=== PATIENT | male | born 1975 | race African-American/Black ===

== ENCOUNTER 2016-08-04 10:43 | Emergency (ER) | payer MEDICAID ==
[2016-08-04 10:51] VITALS: BP 127/71
--- NOTE | 2016-08-04 15:41 | ED ---
Willis, Doctor,Rae, scribed for Ayan Schmidt MD on 08/04/16 at 1139 . GI/ HPI - HPI Summary HPI Summary: 40 year old male arrived to [facility] c/o burning sensation during bowel movements for the past month. He denies any hematochezia, but indicates that the pain is burning and very uncomfortable. He has no PMHx of anal fissures or hemorrhoids. He reports driving very often, and has been using Preparation H (OTC Ointment) regularly. - History of Current Complaint Chief Complaint: EDGeneral Time Seen by Provider: 08/04/16 11:09 Stated Complaint: HEMORRHOIDS Hx Obtained From: Patient Onset/Duration: Started Weeks Ago - one month Timing: Constant Severity: Moderate Current Severity: Moderate Pain Intensity: 6 Associated Signs and Symptoms: Negative: Blood w/Stool, Melena Alleviating Factor(s): Nothing - No change with OTC Ointment (Preparation H) - Allergy/Home Medications Allergies/Adverse Reactions: Allergies Allergy/AdvReac Type Severity Reaction Status Date / Time No Known Allergies Allergy Verified 08/04/16 10:51 PMH/Surg Hx/FS Hx/Imm Hx Endocrine/Hematology History: Denies: Hx Diabetes Cardiovascular History: Denies: Hx Hypertension GI History: Reports: Other GI Disorders - no PMHx of anal fissures, hemorrhoids Infectious Disease History: No Infectious Disease History: Denies: Traveled Outside the [place] in Last 30 Days - Family History Known Family History: Negative: Hypertension, Diabetes - Social History Substance Use Type: Reports: Marijuana Review of Systems Negative: Fever Positive: Other - burning during bowel movements, no hematochezia All Other Systems Reviewed And Are Negative: Yes Physical Exam - Summary Physical Exam Summary: Rectal Exam performed. No abscess, no external hemorrhoids. Slight tenderness. Triage Information Reviewed: Yes Vital Signs On Initial Exam: Initial Vitals Temp Pulse Resp BP Pulse Ox 98.7 F 63 18 127/71 100 08/04/16 10:48 08/04/16 10:48 08/04/16 10:48 08/04/16 10:48 08/04/16 10:48 Vital Signs Reviewed: Yes Appearance: Positive: Well-Appearing, No Pain Distress Skin: Positive: Warm, Skin Color Reflects Adequate Perfusion, Dry Head/Face: Positive: Normal Head/Face Inspection Eyes: Positive: Normal ENT: Positive: Normal ENT inspection Neck: Positive: Supple, Nontender Respiratory/Lung Sounds: Positive: Clear to Auscultation, Breath Sounds Present Cardiovascular: Positive: RRR Abdomen Description: Positive: Nontender, Soft Bowel Sounds: Positive: Present Musculoskeletal: Positive: Normal Neurological: Positive: Normal Psychiatric: Positive: Normal, Affect/Mood Appropriate Diagnostics - Vital Signs Vital Signs Temp Pulse Resp BP Pulse Ox 08/04/16 10:48 98.7 F 63 18 127/71 100 - Laboratory Lab Statement: Any lab studies that have been ordered have been reviewed, and results considered in the medical decision making process. GIGU Course/Dx - Course Course Of Treatment: He rectal exam revealed no hemorrhoids or signs of abscess. He was tender diffusely and I'm wondering if I'm missing a fissure. I will treat him accordingly and have him F/U if not improved. - Diagnoses Provider Diagnoses: Anal fissure Discharge - Discharge Plan Condition: Stable Disposition: HOME Prescriptions: Docusate CAP* [Colace Cap*] 100 mg PO BID #20 cap Patient Education Materials: Anal Fissure (ED) [place] [facility] [place]] Additional Instructions: [place] [facility] [place] The documentation as recorded by the Doctor arellano Tahera accurately reflects the service I personally performed and the decisions made by me, Ayan Schmidt MD.
== END 2016-08-04 12:07 | disposition home or self-care (01) ==
LOC: ED 10:43
DX: K60.2 Anal fissure, unspecified (principal)
CPT/HCPCS: 36415; 86703; 99282

== ENCOUNTER 2016-12-21 20:39 | Emergency (ER) | payer MEDICAID ==
[2016-12-21] MEDS ORDERED: Cyclobenzaprine TAB* 10 MG PO ONE (21:19)
[2016-12-21] MEDS ORDERED: Ibuprofen TAB* 800 MG PO ONE (21:19)
--- NOTE | 2016-12-21 21:59 | RAD ---
HISTORY: Left thigh pain COMPARISONS: None relevant TECHNIQUE: Multiple transverse and longitudinal ultrasound images were obtained of the left lower extremity from the level of the common femoral vein inferiorly through to the infrapopliteal veins using grayscale, color Doppler, and spectral Doppler imaging with and without compression and with augmentation. Comparison images were obtained of the contralateral common femoral vein. FINDINGS: VEINS: The venous system of the left lower extremity is compressible throughout its course, with normal flow on color Doppler imaging and normal response to augmentation on spectral Doppler imaging. SOFT TISSUES: There is a subcentimeter short axis typically benign-appearing lymph node of the left inguinal region. OTHER FINDINGS: None. IMPRESSION: NO LEFT LOWER EXTREMITY DEEP VEIN THROMBOSIS
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
[2016-12-21 22:25] VITALS: BP 126/78
== END 2016-12-21 22:24 | disposition home or self-care (01) ==
LOC: ED 20:39
DX: S86.912A Strain of unspecified muscle(s) and tendon(s) at lower leg level, left leg, initial encounter (principal); M79.652 Pain in left thigh; F17.210 Nicotine dependence, cigarettes, uncomplicated; X50.9XXA Other and unspecified overexertion or strenuous movements or postures, initial encounter; Y93.89 Activity, other specified; Y92.89 Other specified places as the place of occurrence of the external cause
CPT/HCPCS: 99282; A9270-GY

== ENCOUNTER → 2018-03-08 12:17 | Emergency (ER) | payer SELFPAY ==
[~2018-03-08 12:17] MED LIST: Polymyx/Trimethoprim OPTH* 10 ML BTL BOTH EYES SCH; Polymyx/Trimethoprim OPTH* 10 ML BTL ONE
--- NOTE | 2018-03-08 13:52 | ED ---
Throat Pain/Nasal Congestion - HPI Summary HPI Summary: Patient is a 42-year-old male presenting to the ED with erythematous conjunctival injection with pruritus and tearing 2 days. 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 He denies any recent illness. He does not wear contacts and has never had symptoms like this in the past. He has not taken anything over-the- counter for relief. He states the symptoms began with the right eye and is now over into the left eye. He denies any crusting or purulent drainage from the eyes bilaterally. - History of Current Complaint Chief Complaint: EDEyeProblem Time Seen by Provider: 03/08/18 12:31 Hx Obtained From: Patient Onset/Duration: Sudden Onset Severity: Moderate Associated Signs And Symptoms: Positive: Negative - Epiglottits Risk Factors Epiglottis Risk Factors: Negative - Allergies/Home Medications Allergies/Adverse Reactions: Allergies Allergy/AdvReac Type Severity Reaction Status Date / Time No Known Allergies Allergy Verified 03/08/18 12:29 PMH/Surg Hx/FS Hx/Imm Hx Previously Healthy: Yes Endocrine/Hematology History: Denies: Hx Diabetes Cardiovascular History: Denies: Hx Hypertension GI History: Reports: Other GI Disorders - no PMHx of anal fissures, hemorrhoids - Immunization History Hx Pertussis Vaccination: No Immunizations Up to Date: Yes Infectious Disease History: No Infectious Disease History: Denies: Traveled Outside the [place] in Last 30 Days - Family History Known Family History: Negative: Hypertension, Diabetes - Social History Occupation: Employed Full-time Lives: With Family Alcohol Use: Occasionally Hx Substance Use: Yes Substance Use Type: Reports: None Hx Tobacco Use: Yes Smoking Status (MU): Heavy Every Day Tobacco Smoker Review of Systems Constitutional: Negative Negative: Fever, Chills, Fatigue, Skin Diaphoresis Positive: Drainage, Erythema Negative: Palpitations, Chest Pain Negative: Shortness Of Breath, Cough Negative: Abdominal Pain, Vomiting, Diarrhea, Nausea Negative: Arthralgia Skin: Negative Neurological: Negative All Other Systems Reviewed And Are Negative: Yes Physical Exam Triage Information Reviewed: Yes Vital Signs On Initial Exam: Initial Vitals Temp Pulse Resp BP Pulse Ox 98.3 F 72 16 116/66 98 03/08/18 12:26 03/08/18 12:26 03/08/18 12:26 03/08/18 12:26 03/08/18 12:26 Vital Signs Reviewed: Yes Appearance: Positive: Well-Appearing, Well-Nourished Skin: Positive: Warm, Skin Color Reflects Adequate Perfusion Head/Face: Positive: Normal Head/Face Inspection Eyes: Positive: EOMI, RUBIO, Conjunctiva Inflammed - tearing and injection Neck: Positive: Supple, Nontender, No Lymphadenopathy Respiratory/Lung Sounds: Positive: Clear to Auscultation, Breath Sounds Present Cardiovascular: Positive: RRR, Pulses are Symmetrical in both Upper and Lower Extremities Musculoskeletal: Positive: Normal, Strength/ROM Intact Neurological: Positive: Speech Normal Psychiatric: Positive: Normal, Affect/Mood Appropriate AVPU Assessment: Alert Diagnostics - Vital Signs Vital Signs Temp Pulse Resp BP Pulse Ox 03/08/18 12:26 98.3 F 72 16 116/66 98 - Laboratory Lab Statement: Any lab studies that have been ordered have been reviewed, and results considered in the medical decision making process. EENT Course/Dx - Course Course Of Treatment: On physical examination, there is conjunctival injection bilaterally without tearing. Patient endorses no difficulty with vision. EOMI/ PERRLA. Visual espino intact. Polymyxin trimethoprim drops given in the ED he is to use these every 3 hours while awake 5 days. He understands return precautions and voices no concerns at this time. He is diagnosed with a bacterial conjunctivitis with a possible allergy component. He is encouraged to obtain an allergy medication for relief. - Differential Diagnoses Differential Diagnoses: Conjunctivitis, Other - Bacterial conjunctivitis, allergic conjunctivitis, viral conjunctivitis, uveitis, iritis, trauma - Diagnoses Provider Diagnoses: Conjunctivitis Discharge - Sign-Out/Discharge Documenting (check all that apply): Patient Departure - Discharge Plan Condition: Stable Disposition: HOME Patient Education Materials: Conjunctivitis (ED) Referrals: No Primary Care Phys,NOPCP [Primary Care Provider] - Additional Instructions: Wash hands frequently Polymyxin drops every 3 hours while awake 5 days in both eyes Allergy medication, [id number] may help with itching - Billing Disposition and Condition Condition: STABLE Disposition: Home
[2018-03-08 14:02] VITALS: BP 125/71
== END | disposition home or self-care (01) ==
LOC: ED 12:17
DX: H10.9 Unspecified conjunctivitis (principal); F17.210 Nicotine dependence, cigarettes, uncomplicated
CPT/HCPCS: 99282

== ENCOUNTER 2018-03-11 20:24 | Emergency (ER) | payer SELFPAY ==
[2018-03-11] MEDS ORDERED: Bacitracin OINTMENT* 0.5% 0.5 oz TUBE TOPICAL ONE (20:52)
[2018-03-11] MEDS ORDERED: oxyCODONE/Acetamin 5/325 MG* TAB PO ONE (20:52)
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
[2018-03-11 21:16] VITALS: BP 150/78
== END 2018-03-11 21:16 | disposition home or self-care (01) ==
LOC: ED 20:24
DX: T23.002A Burn of unspecified degree of left hand, unspecified site, initial encounter (principal); X19.XXXA Contact with other heat and hot substances, initial encounter; Y92.9 Unspecified place or not applicable; F17.210 Nicotine dependence, cigarettes, uncomplicated
CPT/HCPCS: 99282; A9270-GY

== ENCOUNTER → 2018-03-16 11:08 | Emergency (ER) | payer SELFPAY ==
[2018-03-16 12:04] VITALS: BP 128/82
--- NOTE | 2018-03-16 17:21 | ED ---
Throat Pain/Nasal Congestion - HPI Summary HPI Summary: Pt. is a 42-year-old male who presents emergency department for ongoing eye redness and irritation times one week. Patient was seen in the ER 03/08 for eye irritation redness. He was placed on antibiotic drops an antihistamine drops. Patient states that irritation has persisted and he has some mild swelling to his eyes. He notes clear bilaterally drainage. Denies visual disturbances. Also admits to dry cough, nasal congestion. Patient denies past medical history. Denies sick contacts. Denies history of seasonal allergies. - History of Current Complaint Chief Complaint: EDEyeProblem Time Seen by Provider: 03/16/18 11:22 Hx Obtained From: Patient - Allergies/Home Medications Allergies/Adverse Reactions: Allergies Allergy/AdvReac Type Severity Reaction Status Date / Time No Known Allergies Allergy Verified 03/16/18 11:15 PMH/Surg Hx/FS Hx/Imm Hx Previously Healthy: Yes Endocrine/Hematology History: Denies: Hx Diabetes Cardiovascular History: Denies: Hx Hypertension GI History: Reports: Other GI Disorders - no PMHx of anal fissures, hemorrhoids Infectious Disease History: No Infectious Disease History: Denies: Traveled Outside the [place] in Last 30 Days - Family History Known Family History: Negative: Hypertension, Diabetes - Social History Occupation: Employed Full-time Lives: With Family Alcohol Use: Rare Hx Substance Use: Yes Substance Use Type: Reports: Marijuana Hx Tobacco Use: Yes Smoking Status (MU): Heavy Every Day Tobacco Smoker Review of Systems Constitutional: Negative Negative: Fever, Chills Positive: Drainage, Erythema. Negative: Photophobia, Blurred Vision, Diplopia All Other Systems Reviewed And Are Negative: Yes Physical Exam Triage Information Reviewed: Yes Vital Signs On Initial Exam: Initial Vitals Temp Pulse Resp BP Pulse Ox 98.3 F 58 16 131/68 100 03/16/18 11:15 03/16/18 11:15 03/16/18 11:15 03/16/18 11:15 03/16/18 11:15 Vital Signs Reviewed: Yes Appearance: Positive: Well-Appearing - Pt. sitting on bed in NAD> Skin: Positive: Warm, Dry Head/Face: Positive: Normal Head/Face Inspection Eyes: Positive: Normal, EOMI - without pain, RUBIO, Other: - Didn't have a mildly injected bilateral eyes. Very mild upper and lower eyelid edema without erythema. No evidence of periorbital cellulitis. ENT: Positive: TMs normal - Oropharynx is injected without tonsillar edema or exudates. Nasal mucosa is injected and inflamed with enlarged turbinates bilaterally., Other Neck: Positive: Supple, Nontender Neurological: Positive: Normal, CN Intact II-III Psychiatric: Positive: Affect/Mood Appropriate Diagnostics - Vital Signs Vital Signs Temp Pulse Resp BP Pulse Ox 03/16/18 12:02 97.8 F 66 18 128/82 100 03/16/18 11:15 98.3 F 58 16 131/68 100 - Laboratory Lab Statement: Any lab studies that have been ordered have been reviewed, and results considered in the medical decision making process. EENT Course/Dx - Course Course Of Treatment: Patient presenting with ongoing irritation and erythema. Suspect seasonal allergies and allergic conjunctivitis. I culture was obtained. Advised patient to continue allergy eye drops and will add or oral antihistamine. To call the [facility] clinic on Sunday to schedule close follow-up appointment. Return to the ER if symptoms change or worsen. Patient understands and agrees with plan. - Differential Diagnoses Differential Diagnoses: Conjunctivitis - Diagnoses Provider Diagnoses: Allergic conjunctivitis and rhinitis Discharge - Sign-Out/Discharge Documenting (check all that apply): Patient Departure - Discharge Plan Condition: Good Disposition: HOME Prescriptions: Cetirizine HCl/Pseudoephedrine [Zyrtec-D Tablet] 1 each PO DAILY #30 tab.er.12h Patient Education Materials: Allergies (ED), Conjunctivitis (ED) Forms: *Work Release Referrals: [facility] [Outside] No Primary Care Phys,NOPCP [Primary Care Provider] - Additional Instructions: Schedule an appointment with the [facility] for follow up Take allergy medication as directed Continue allergy eye drops Will call if eye culture is positive Apply warm compresses Return to ER if symptoms change or worsen - Billing Disposition and Condition Condition: GOOD Disposition: Home
== END | disposition home or self-care (01) ==
LOC: ED 11:08
DX: H10.13 Acute atopic conjunctivitis, bilateral (principal); J31.0 Chronic rhinitis; F17.200 Nicotine dependence, unspecified, uncomplicated
CPT/HCPCS: 87070; 87077; 87205; 99282

== ENCOUNTER 2018-06-13 04:44 | Emergency (ER) | payer SELFPAY ==
[2018-06-13 04:48] VITALS: BP 144/87
== END 2018-06-13 05:06 | disposition left against medical advice (07) ==
LOC: ED 04:44
DX: Z04.89 Encounter for examination and observation for other specified reasons (principal); Z53.21 Procedure and treatment not carried out due to patient leaving prior to being seen by health care provider